=== PATIENT | male | born 1965 | race Caucasian/White ===

== ENCOUNTER 2021-06-18 22:54 | Emergency (ER) | payer OTHER ==
[2021-06-18 23:04] VITALS: BP 129/74; PULSE 61; TEMP 98; BMI 31.4
[2021-06-19] MEDS ORDERED: SULFAMETHOXAZOLE/TRIMETHOPRIM 800MG/160MG D.S. TABLET PO ONE (00:24)
[2021-06-19] MEDS ORDERED: CEPHALEXIN MONOHYDRATE 500 MG CAPSULE (UD) PO ONE (00:24)
[2021-06-19] MEDS ORDERED: CEPHALEXIN MONOHYDRATE 500 MG CAPSULE (UD) ONE (00:33)
[2021-06-19] MEDS ORDERED: SULFAMETHOXAZOLE/TRIMETHOPRIM 800MG/160MG D.S. TABLET ONE (00:33)
[2021-06-19 00:52] LABS: BASO % 1.1 % (0-2.0); EOS % 3.4 % (0-4.5); HEMATOCRIT 39.6 % (35.4-49); HEMOGLOBIN 14.1 GM/dL (11.7-16.9); LYMPH % 29.8 % (8-40); MCH 30.7 pg (25.7-33.7); MCHC 35.6 g/dl (32.0-35.9); MEAN CELL VOLUME 86.3 fl (80-96); MEAN PLT VOLUME 8.2 fl (7.5-11.1); MONO % 8.3 % (3.8-10.2); NEUT % 57.4 % (42.8-82.8); PLATELET COUNT 214 10^3/uL (134-434); RBC 4.59 M/mm3 (4.00-5.60); WHITE BLOOD COUNT 7.5 K/mm3 (4.0-10.0)
[2021-06-19 01:18] LABS: CALCIUM 8.9 mg/dL (8.5-10.1)
[2021-06-19 01:19] LABS: ALBUMIN 3.8 g/dl (3.4-5.0); BLOOD UREA NITROGEN 16.8 mg/dL (7-18)
[2021-06-19 01:22] LABS: CREATININE 1.2 mg/dL (0.55-1.3)
[2021-06-19 01:24] LABS: BILIRUBIN,TOTAL 0.3 mg/dL (0.2-1); TOT PROT 7.5 g/dl (6.4-8.2)
== END 2021-06-19 02:30 | disposition home or self-care (01) ==
LOC: JERFT 22:54
DX: H60.12 Cellulitis of left external ear (principal)
CPT/HCPCS: 36415; 80053; 82962; 85025; 99283-25

== ENCOUNTER 2021-06-20 14:08 | Emergency (ER) | payer OTHER ==
[2021-06-20 14:26] VITALS: BP 125/72; PULSE 63; TEMP 98.1; BMI 30.5
[2021-06-20 16:16] LABS: BASO % 1.1 % (0-2.0); EOS % 2.7 % (0-4.5); HEMATOCRIT 40.7 % (35.4-49); MCH 29.8 pg (25.7-33.7); MCHC 34.3 g/dl (32.0-35.9); MEAN CELL VOLUME 86.8 fl (80-96); MEAN PLT VOLUME 8.3 fl (7.5-11.1); NEUT % 66.2 % (42.8-82.8); PLATELET COUNT 212 10^3/uL (134-434); RBC 4.68 M/mm3 (4.00-5.60); RDW 13.2 % (11.9-15.9); WHITE BLOOD COUNT 6.6 K/mm3 (4.0-10.0)
[2021-06-20 16:34] LABS: ALBUMIN 3.8 g/dl (3.4-5.0); BLOOD UREA NITROGEN 13.5 mg/dL (7-18); CALCIUM 9.3 mg/dL (8.5-10.1)
[2021-06-20 16:39] LABS: BILIRUBIN,TOTAL 0.4 mg/dL (0.2-1); TOT PROT 7.5 g/dl (6.4-8.2)
== END 2021-06-20 19:30 | disposition home or self-care (01) ==
LOC: JERFT 14:08
DX: L03.211 Cellulitis of face (principal)
CPT/HCPCS: 36415; 70487-TC; 80053; 85025; 99285-25; Q9967